=== PATIENT | male | born 1975 | race Caucasian/White ===

== ENCOUNTER 2021-04-11 14:55 | Emergency (ER) | payer OTHER ==
[~2021-04-11] VITALS: Ht 162.6 cm; Wt 104.3 kg
[2021-04-11] MEDS ORDERED: IBU800 MG PO (20:58)
== END 2021-04-11 21:09 | disposition home or self-care (01) ==
LOC: ER 14:55
DX: M25.562 Pain in left knee (principal); Y92.832 Beach as the place of occurrence of the external cause; Y93.61 Activity, american tackle football